=== PATIENT | female | born 1975 | race Caucasian/White ===

== ENCOUNTER → 2020-01-09 11:10 | Outpatient (BNVA) | payer MEDICAID, SELFPAY | PROVIDERS: PCP Internal Medicine; Referring Provider Internal Medicine; Visit Provider Internal Medicine | DX: E89.1 Postprocedural hypoinsulinemia (principal); E55.9 Vitamin D deficiency, unspecified; E66.3 Overweight; Z79.899 Other long term (current) drug therapy; Z98.84 Bariatric surgery status | CPT/HCPCS: 99214 ==

== ENCOUNTER 2020-03-01 15:50 | Outpatient (REF) | payer MEDICAID, SELFPAY ==
--- NOTE | 2020-03-01 15:59 | XR_ITS ---
EXAMINATION: XR KNEE, RIGHT CLINICAL INFORMATION: Pain COMPARISON: None TECHNIQUE: Four views of the right knee. FINDINGS: Bones and soft tissues are normal. No fracture or joint effusion. Alignment is anatomic. Joint spaces are well maintained. No abnormal soft tissue calcification. XR/XR knee RT 4V IMPRESSION: Normal right knee.
== END 2020-03-01 15:51 | disposition home or self-care (01) ==
LOC: HO.XRAY 15:50
PROVIDERS: PCP Internal Medicine; Visit Provider Internal Medicine
DX: M25.561 Pain in right knee (principal)
CPT/HCPCS: 73564

== ENCOUNTER → 2020-03-28 09:06 | Outpatient (BNVA) | payer MEDICAID, SELFPAY | PROVIDERS: PCP Internal Medicine; Visit Provider Dietitian, Registered | DX: Z76.89 Persons encountering health services in other specified circumstances (principal) ==

== ENCOUNTER 2020-04-02 16:50 | Outpatient (REF) | payer MEDICAID, SELFPAY | END 2020-04-02 16:51 | disposition home or self-care (01) | LOC: HO.LAB 16:50 | PROVIDERS: Visit Provider Internal Medicine | DX: Z20.822 Contact with and (suspected) exposure to COVID-19 (principal) | CPT/HCPCS: 36415; C9803; U0003 ==

== ENCOUNTER 2020-04-06 14:46 | Emergency (ER) | payer MEDICAID, SELFPAY ==
[2020-04-06 16:45] VITALS: BP 153/83; PULSE 60; RESP 18; TEMP 36.8; O2SAT 99; BMI 29.2
[2020-04-06] MEDS: Lidocaine HCl Viscous 2 % 15 ML SOLUTION MUCOUS MEM (19:06)
[2020-04-06] MEDS: Magnesium Hydrox/Alum Hydrox 30 ML ORAL.SUSP PO (19:06)
[2020-04-06 19:09] LABS: MANUAL DIFF FLAG NO
--- NOTE | 2020-04-06 19:09 | PC.NURSE ---
Report taken from miranda Berg RN resuming care. Pt medicated per MAR with GI cocktail, refusing IV, states I don't really need it and I want to leave before I expose myself to much. aware.
--- NOTE | 2020-04-06 19:13 | ED_ITS ---
HPI - Nausea/Vomiting/Diarrhea General Chief complaint: Dizziness Stated complaint: vomiting and weak Time Seen by Provider: 04/06/20 18:11 Source: patient Mode of arrival: ambulatory Limitations: no limitations History of Present Illness HPI Narrative: Patient comes emergency room complaining of vomiting starting t scot. Patient denies fever, no chills, no diarrhea, complaining of mild epigastric burning sensation. MD elicited complaint: nausea and vomiting Related Data Home Medications Medication Instructions Recorded Confirmed bupropion HCl 300 mg 24 hr tablet, 300 mg PO QAM 01/09/20 01/09/20 extended release calcium carbonate 500 mg calcium 1,000 mg PO DAILY 01/09/20 01/09/20 (1,250 mg) tablet cholecalciferol (vitamin D3) 125 125 mcg PO DAILY 01/09/20 01/09/20 mcg (5,000 unit) capsule hydroxyzine HCl 50 mg tablet 50 mg PO QID PRN 01/09/20 01/09/20 levonorgestrel 20 mcg/24 hours (6 INTRAUTERINE 01/09/20 01/09/20 yrs) 52 mg intrauterine device sertraline 100 mg tablet 100 mg PO DAILY 01/09/20 01/09/20 tramadol 50 mg tablet 50 mg PO BID PRN 01/09/20 01/09/20 Previous Rx's Medication Instructions Recorded acarbose 25 mg tablet 25 mg PO .COMPLEX 30 Days #120 tab 01/09/20 ondansetron HCl [Zofran] 4 mg PO Q8H PRN #10 tab 04/06/20 Allergies Allergy/AdvReac Type Severity Reaction Status Date / Time No Known Allergies Allergy Unknown Unverified 01/09/20 10:43 [No Known Allergies*] Review of Systems Review of Systems: Constitutional : No Weight loss, No Fever, No Chills, No Night Sweats, No Fatigue, No Malaise ENT/Mouth : No Hearing loss, No Ear Pain, No Nasal Congestion, No Sinus Pain, No Hoarseness, No sore throat, No Rhinorrhea, No Swallowing Difficulty Eyes: No Eye Pain, No Swelling, No Redness, No Foreign Body, No Discharge, No Vision Changes Cardiovascular : No Chest Pain, No SOB, No Dyspnea on Exertion, No Orthopnea, No Edema, No Palpitations Respiratory : No Cough, No Sputum, No Wheezing, No Smoke Exposure, No Dyspnea Gastrointestinal : Draining of nausea vomiting, no Diarrhea, No Constipation, complaining of epigastric burning, No Hematochezia, No Melena Genitourinary : no irregular bleeding, No Dysuria, No Urinary Frequency, No Hematuria, No Urinary Incontinence, No Urgency, No Flank Pain, No Urinary Flow Changes, No Hesitancy Musculoskeletal : No joint pain, No Myalgias, No Joint Swelling Skin : No Skin Lesions, No rash Neuro : No Weakness, No Numbness, No Paresthesias, No Loss of Consciousness, No Dizziness, No Headache Psych : No Anxiety/Panic, No Depression, No SI/HI/AH/VH, No Social Issues, Heme/Lymph: No Bruising, No Bleeding,No Lymphadenopathy Endocrine : No Polyuria, No Polydipsia, No Temperature Intolerance PMFSH Past Medical History Medical History Anxiety Asthma Depression Hypoglycemia after GI (gastrointestinal) surgery Overweight Sleep apnea Vitamin D deficiency Surgical History History of sleeve gastrectomy History of uterine fibroid Hx laparoscopic cholecystectomy Hx of section Hx of tubal ligation Family History Family History Father Brain tumor Mother HTN (hypertension) Depression with anxiety Obesity Social History Social History Smoking Status: Never smoker Advance Directives: No Advance Directives Information Provided: Yes Physical Exam Vital Signs: Vital Signs: Last Vital Signs Temp 98.3 F 04/06/20 19:58 Pulse 62 04/06/20 19:58 Resp 18 04/06/20 19:58 BP 118/75 04/06/20 19:58 Pulse Ox 96 04/06/20 19:58 Body Mass Index 29.2 Appearance: Alert. Oriented X3. No acute distress. Well-appearing, playing on her phone Eyes: Pupils equal, round and reactive to light. ENT: Pharynx normal. Neck: Normal inspection. Neck supple. No lymph nodes noted. No crepitus CVS: Normal heart rate and rhythm. Pulses normal. Normal S1 and S2 Respiratory: No respiratory distress. Breath sounds normal. No Wheezing. No rales Abdomen: Soft and nontender. No rigidity. No distention. good BS x4 Skin: Skin warm and dry. Normal skin color. Normal skin turgor. Extremities: No lower extremity edema. No lower extremity edema. No Lacerations. No Rash Neuro: Oriented X 3. No motor deficit. No sensory deficit. Moving all extermities. No slurred speech. Course Course Course Narrative: Patient declined IV insertion, declined fluids and IV medi cation. Patient states she only wants to know the results of her labs and wants to leave to avoid getting exposed to COVID-19. Patient only accepting p.o. medication I discussed the labs result with the patient, I also discussed with the patient that after the results come back, we call bariatric surgery to let them know about their patients who come in to the emergency room, and to schedule a follow-up appointment. Patient states that she does not want to wait, she is in a hurry and would like to be discharged. Patient states that she will call Dr. Jackson office on Thursday. Patient states that she feels much better, no longer vomiting or nauseous, no abdominal pain. MDM - Nausea/Vomiting/Diarrhea Lab Data Result diagrams: 04/06/20 19:02 04/06/20 19:02 Labs: Lab Results 04/06/20 04/06/20 Range/Units 19:02 19:02 WBC 5.3 (4.8-10.8) X10*3/uL RBC 4.10 L (4.20-5.50) X10*6/uL Hgb 12.4 (12.0-16.0) g/dl Hct 35.9 L (37-47) % MCV 87.6 (80-98) fL MCH 30.2 (27.0-33.0) pg MCHC 34.5 (31.0-35.0) g/dl RDW 12.6 (11.0-16.0) % Plt Count 238 (160-400) X10*3/uL MPV 11.2 (9.4-12.3) fL Immature Gran % (Auto) 0.2 (0.0-0.4) % Neut % (Auto) 45.6 (45-73) % Lymph % (Auto) 42.8 H (20-40) % [place] % (Auto) 6.8 (2-11) % Eos % (Auto) 4.2 H (0-4) % Baso % (Auto) 0.4 (0-2) % Lymph # (Auto) 2.3 (1.2-4.9) X10*3/uL [place] # (Auto) 0.4 (0.1-1.2) X10*3/uL Eos # (Auto) 0.2 (0.0-0.4) X10*3/uL Baso # (Auto) 0.0 (0.0-0.2) X10*3/uL Abs Immat Gran (auto) 0.01 (0.00-0.03) X10*3/uL Absolute Neuts (auto) 2.4 (2.0-8.3) X10*3/uL Absolute Nucleated RBC 0.000 (0.0-0.012) X10*3/uL Nucleated RBC % (auto) 0.0 (0.0-0.2) /100WBC Sodium 140 (135-145) mmol/L Potassium 3.8 (3.3-5.1) mmol/l Chloride 110 H (96-108) mmol/L Carbon Dioxide 24 (22-29) mmol/L Anion Gap 10 L (12-20) BUN 16 (9-16) mg/dL Creatinine 0.71 (0.5-1.4) mg/dL Estim Creat Clear Calc 95.3 Estimated GFR > 60 Random Glucose 82 (60-115) mg/dL Calcium 8.4 (8.4-10.2) mg/dL Total Bilirubin 0.5 (0.0-1.0) mg/dL Direct Bilirubin 0.2 (0.0-0.5) mg/dL AST 20 (5-31) U/L ALT 16 (0-31) U/L Alkaline Phosphatase 88 (39-117) U/L Total Protein 6.4 L (6.5-8.0) g/dL Albumin 3.8 (3.5-5.0) g/dL Lipase 16 (8-78) U/L Discharge Plan Discharge Clinical Impression: Abdominal pain Qualifiers: Abdominal location: epigastric Qualified Code(s): R10.13 - Epigastric pain Vomiting Qualifiers: Vomiting type: unspecified Vomiting Intractability: unspecified Nausea presence: unspecified Qualified Code(s): R11.10 - Vomiting, unspecified Patient Disposition: Home, Self-Care Instructions: Acute Nausea and Vomiting (ED) Additional Instructions: Please call the Bariatric surgery office on Thursday. Please follow-up with your primary care physician tomorrow. If you have any worsening or new symptoms, please return to the emergency room or call 911 Prescriptions: New ondansetron HCl [Zofran] 4 mg tablet 4 mg PO Q8H PRN (Reason: nausea and vomiting) Qty: 10 RF: 0 No Action tramadol 50 mg tablet 50 mg PO BID PRNRF: 0 bupropion HCl 300 mg tablet extended release 24 hr 300 mg PO QAM RF: 0 sertraline 100 mg tablet 100 mg PO DAILY RF: 0 hydroxyzine HCl 50 mg tablet 50 mg PO QID PRNRF: 0 Mirena 20 mcg/24 hours (5 yrs) 52 mg intrauterine device intrauterine RF: 0 calcium carbonate 500 mg calcium (1,250 mg) tablet 1,000 mg PO DAILY RF: 0 cholecalciferol (vitamin D3) 125 mcg (5,000 unit) capsule 125 mcg PO DAILY RF: 0 acarbose 25 mg tablet 25 mg PO .COMPLEX 30 Days Qty: 120 RF: 11
--- NOTE | 2020-04-06 19:17 | PC.NURSE ---
Pt medicated with PO Zofran, agreeable to waiting until labs result for discharge.
[2020-04-06 19:20] LABS: Basophils Percent Auto 0.4 % (0-2); Eosinophils Absolute Auto 0.2 X10*3/uL (0.0-0.4); Eosinophils Percent Auto 4.2 % (0-4); Hematocrit 35.9 % (37-47); Hemoglobin 12.4 g/dl (12.0-16.0); Imm Gran Abs Auto 0.01 X10*3/uL (0.00-0.03); Imm Gran Pct Auto 0.2 % (0.0-0.4); Lymphocytes Absolute Auto 2.3 X10*3/uL (1.2-4.9); Lymphocytes Percent Auto 42.8 % (20-40); Mean Corpuscular HGB Conc 34.5 g/dl (31.0-35.0); Mean Corpuscular Hemoglobin 30.2 pg (27.0-33.0); Mean Corpuscular Volume 87.6 fL (80-98); Mean Platelet Volume 11.2 fL (9.4-12.3); Monocytes Absolute Auto 0.4 X10*3/uL (0.1-1.2); Monocytes Percent Auto 6.8 % (2-11); Neutrophils Absolute Auto 2.4 X10*3/uL (2.0-8.3); Neutrophils Percent Auto 45.6 % (45-73); Platelet Count 238 X10*3/uL (160-400); Red Cell Distribution Width 12.6 % (11.0-16.0); White Blood Count 5.3 X10*3/uL (4.8-10.8)
[2020-04-06 19:35] LABS: Alanine Aminotransferase 16 U/L (0-31); Albumin Level 3.8 g/dL (3.5-5.0); Alkaline Phosphatase 88 U/L (39-117); Anion Gap 10 (12-20); Aspartate Amino Transferase 20 U/L (5-31); Bilirubin Direct 0.2 mg/dL (0.0-0.5); Bilirubin Total 0.5 mg/dL (0.0-1.0); Blood Urea Nitrogen 16 mg/dL (9-16); Calcium 8.4 mg/dL (8.4-10.2); Carbon Dioxide 24 mmol/L (22-29); Chloride 110 mmol/L (96-108); Creatinine Clr Calc Pharmacy 95.3; Estimated Glomerular Filt Rate > 60; Glucose Random 82 mg/dL (60-115); Lipase 16 U/L (8-78); Potassium 3.8 mmol/l (3.3-5.1); Sodium 140 mmol/L (135-145); Total Protein 6.4 g/dL (6.5-8.0)
[2020-04-06 19:58] VITALS: BP 118/75; PULSE 62; RESP 18; TEMP 36.8; O2SAT 96
--- NOTE | 2020-04-06 20:32 | PC.NURSE ---
Pt ambulating to the bathroom with a machado/steady gait. Denies pain/dizziness, requesting discharge. aware.
--- NOTE | 2020-04-06 21:00 | PC.NURSE ---
MD at bedside discussing results and plan to discharge home.
== END 2020-04-06 21:13 | disposition home or self-care (01) ==
PROVIDERS: Emergency Provider Emergency Medicine; PCP Internal Medicine
DX: R10.13 Epigastric pain (principal); R11.2 Nausea with vomiting, unspecified; Z98.84 Bariatric surgery status
CPT/HCPCS: 36415; 80048; 80076; 83690; 85025; 96360; 96361; 96374; 99283; 99284; J2405

== ENCOUNTER 2020-04-21 08:08 | Outpatient (REF) | payer MEDICAID, SELFPAY | END 2020-04-21 08:09 | disposition home or self-care (01) | LOC: HO.LAB 08:08 | PROVIDERS: PCP Internal Medicine; Visit Provider Internal Medicine | DX: Z20.822 Contact with and (suspected) exposure to COVID-19 (principal) | CPT/HCPCS: 36415; C9803; U0003 ==

== ENCOUNTER 2020-04-24 11:14 | Outpatient (REF) | payer MEDICAID, SELFPAY | END 2020-04-24 11:15 | disposition home or self-care (01) | LOC: HO.LAB 11:14 | PROVIDERS: PCP Internal Medicine; Visit Provider Internal Medicine | DX: Z20.822 Contact with and (suspected) exposure to COVID-19 (principal) | CPT/HCPCS: 36415; C9803; U0003; U0005 ==

== ENCOUNTER → 2020-04-27 08:28 | Outpatient (BNVA) | payer MEDICAID, SELFPAY | PROVIDERS: PCP Internal Medicine; Visit Provider Dietitian, Registered ==

== ENCOUNTER 2020-05-02 09:25 | Outpatient (REF) | payer MEDICAID, SELFPAY | END 2020-05-02 09:26 | disposition home or self-care (01) | LOC: HO.LAB 09:25 | PROVIDERS: Visit Provider Internal Medicine | DX: Z20.822 Contact with and (suspected) exposure to COVID-19 (principal) | CPT/HCPCS: 36415; C9803; U0003; U0005 ==

== ENCOUNTER → 2020-05-03 08:21 | Outpatient (BNVA) | payer MEDICAID, SELFPAY | PROVIDERS: PCP Internal Medicine; Visit Provider Physician Assistant ==

== ENCOUNTER → 2020-06-08 08:17 | Outpatient (BNVA) | payer MEDICAID, SELFPAY | PROVIDERS: PCP Internal Medicine; Visit Provider Physician Assistant ==

== ENCOUNTER 2020-06-08 19:36 | Emergency (ER) | payer MEDICAID, SELFPAY ==
[2020-06-08 20:16] VITALS: BP 136/87; PULSE 78; RESP 17; TEMP 36.7; O2SAT 97
[2020-06-08 20:33] VITALS: BP 136/87; PULSE 78; RESP 17; TEMP 36.7; O2SAT 97; BMI 28.5
--- NOTE | 2020-06-08 21:02 | PC.NURSE ---
care team called and made aware pt is in the pod and will be seen. pt is calm cooperative, labs and urine being collected.
[2020-06-08 21:29] LABS: MANUAL DIFF FLAG NO
[2020-06-08 21:30] LABS: Basophils Percent Auto 0.3 % (0-2); Eosinophils Absolute Auto 0.2 X10*3/uL (0.0-0.4); Eosinophils Percent Auto 2.3 % (0-4); Hematocrit 37.5 % (37-47); Hemoglobin 12.8 g/dl (12.0-16.0); Imm Gran Abs Auto 0.02 X10*3/uL (0.00-0.03); Imm Gran Pct Auto 0.3 % (0.0-0.4); Lymphocytes Percent Auto 26.7 % (20-40); Mean Corpuscular HGB Conc 34.1 g/dl (31.0-35.0); Mean Corpuscular Hemoglobin 29.6 pg (27.0-33.0); Mean Corpuscular Volume 86.8 fL (80-98); Mean Platelet Volume 10.7 fL (9.4-12.3); Monocytes Absolute Auto 0.5 X10*3/uL (0.1-1.2); Monocytes Percent Auto 7.2 % (2-11); Neutrophils Absolute Auto 4.8 X10*3/uL (2.0-8.3); Neutrophils Percent Auto 63.2 % (45-73); Platelet Count 275 X10*3/uL (160-400); Red Blood Count 4.32 X10*6/uL (4.20-5.50); Red Cell Distribution Width 12.4 % (11.0-16.0); White Blood Count 7.5 X10*3/uL (4.8-10.8)
[2020-06-08 21:33] LABS: UPreg QC Valid YES; Urine Pregnancy NEGATIVE (NEGATIVE)
--- NOTE | 2020-06-08 21:47 | MHC.CARE ---
Pt presented to [facility] [place] secondary to experiencing her first panic attack. Pt reports she has been overwhelmed and stressed and identifies with challenges in her marriage and her 19 year old depending on her. Pt reports her and her got into an verbal disagreement, she went to her cry to take some space and realized she was experiencing a panic attack. Her son came to the car, very concerned because she was unable to speak and drove her to the hospital. Pt reported her current therapist has been her therapist for over 10 years and speaks with him weekly. Her current medications are prescribed by her primary care physician. Pt reports she experiences vague SI such as I would be better off however denies any plan or intent. 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 Pt is advised to follow up with her therapist and request her therapist to refer her to a psychiatrist. Pt was receptive to this and reports she wants to discharge home. Pt will be discharged home with a prescription of Hydroxyzine to assist with her anxiety as needed.
[2020-06-08 22:36] LABS: Amphetamine Screen Urine Not Detected (Not Detect); Barbiturates, Urine Not Detected (Not Detect); Benzodiazepines Screen Urine Not Detected (Not Detect); Cannabinoid Screen Urine Not Detected (Not Detect); Cocaine Screen Urine Not Detected (Not Detect); Ethanol < 10 mg/dL; Opiate Screen Urine Not Detected (Not Detect); Phencyclidine Screen Urine Not Detected (Not Detect)
--- NOTE | 2020-06-08 22:42 | ED.PSYCH ---
HPI - Psych General Chief Complaint: Psychiatric Symptoms Stated Complaint: Crisis Time Seen by Provider: 06/08/20 22:41 Source: EMS Mode of arrival: EMS Limitations: no limitations History of Present Illness HPI Narrative: Pleasant 45-year-old female with history of depression, anxiety, as asthma and other history as noted below presenting via EMS from home with complaint recent stressors and increase in anxiety with vague thoughts of SI for the past month. She reports that about 1 week ago her was found at the front door stab and since she has felt more stressed and anxious. She states she also suffers from depression and anxiety feels it is worse secondary to this. She otherwise denies any illicit drug use. No current medical problems. MD complaint: suicidal ideation, feels depressed and anxiety Onset (ago): day(s) Duration: intermittent History of same: Yes Relieving factors: none Exacerbating factors: medication Associated psychiatric symptoms: none Associated symptoms: denies other symptoms Related Data Home Medications Medication Instructions Recorded Confirmed bupropion HCl 300 mg 24 hr tablet, 300 mg PO QAM 01/09/20 01/09/20 extended release calcium carbonate 500 mg calcium 1,000 mg PO DAILY 01/09/20 01/09/20 (1,250 mg) tablet cholecalciferol (vitamin D3) 125 125 mcg PO DAILY 01/09/20 01/09/20 mcg (5,000 unit) capsule hydroxyzine HCl 50 mg tablet 50 mg PO QID PRN 01/09/20 01/09/20 levonorgestrel 20 mcg/24 hours (6 INTRAUTERINE 01/09/20 01/09/20 yrs) 52 mg intrauterine device sertraline 100 mg tablet 100 mg PO DAILY 01/09/20 01/09/20 tramadol 50 mg tablet 50 mg PO BID PRN 01/09/20 01/09/20 multivitamin with minerals-folic tab PO 05/03/20 05/03/20 acid 200 mcg chewable tablet Previous Rx's Medication Instructions Recorded acarbose 25 mg tablet 25 mg PO .COMPLEX 30 Days #120 tab 01/09/20 ondansetron HCl [Zofran] 4 mg PO Q8H PRN #10 tab 04/06/20 omeprazole 20 mg capsule,delayed 20 mg PO DAILY #30 cap 05/03/20 release hydroxyzine HCl 25 mg PO BID PRN #14 tab 06/08/20 Allergies Allergy/AdvReac Type Severity Reaction Status Date / Time No Known Allergies Allergy Unknown Unverified 01/09/20 10:43 [No Known Allergies*] Review of Systems Review of Systems: Constitutional: No Weight loss, No Fever, No Chills, No Night Sweats, No Fatigue, No Malaise ENT/Mouth: No Hearing loss, No Ear Pain, No Nasal Congestion, No Sinus Pain, No Hoarseness, No sore throat, No Rhinorrhea, No Swallowing Difficulty Eyes: No Eye Pain, No Swelling, No Redness, No Foreign Body, No Discharge, No Vision Changes Cardiovascular: No Chest Pain, No SOB, No Dyspnea on Exertion, No Orthopnea, No Edema, No Palpitations Respiratory: No Cough, No Sputum, No Wheezing, No Smoke Exposure, No Dyspnea Gastrointestinal: No Nausea, No Vomiting, No Diarrhea, No Constipation, No abdominal Pain, No Hematochezia, No Melena Genitourinary: No Dysuria, No Urinary Frequency, No Hematuria, No Urinary Incontinence, No Urgency, No Flank Pain, No Urinary Flow Changes, No Hesitancy Musculoskeletal: No joint pain, No Myalgias, No Joint Swelling Skin: No Skin Lesions, No rash Neuro: No Weakness, No Numbness, No Paresthesias, No Loss of Consciousness, No Dizziness, No Headache Psych: As noted per HPI Heme/Lymph: No Bruising, No Bleeding,No Lymphadenopathy Endocrine: No Polyuria, No Polydipsia, No Temperature Intolerance Yes all other systems are reviewed and are negative PMFSH Past Medical History Medical History (Updated 06/09/20 @ 00:01 by Shane Gallegos) Anxiety Asthma Depression Hypoglycemia after GI (gastrointestinal) surgery Overweight Sleep apnea Vitamin D deficiency Surgical History (Updated 06/08/20 @ 16:20 by Lis Cerna PA-C) History of sleeve gastrectomy History of uterine fibroid Hx laparoscopic cholecystectomy Hx of section Hx of tubal ligation Family History Family History Father Brain tumor Mother HTN (hypertension) Depression with anxiety Obesity Social History Social History Smoking Status: Never smoker Advance Directives: No Physical Exam Vital Signs: Vital Signs: Last Vital Signs Temp 98.0 F 06/08/20 20:33 Pulse 78 06/08/20 20:33 Resp 17 06/08/20 20:33 BP 136/87 06/08/20 20:33 Pulse Ox 97 06/08/20 20:33 Body Mass Index 28.5 Reviewed Const: General: cooperative, healthy appearing and anxious; No intoxicated appearing Nutritional Appearance: average body habitus Orientation/consciousness: patient oriented x3 HENMT: Head: Yes normal to inspection Ears: hearing grossly normal bilaterally Eyes: General: appearance normal, both eyes and all related structures Visual Conn: normal visual conn by confrontation Neck: Neck: Yes normal visual inspection, No positive Brudzinski's sign, No positive Kernig's sign and No tender Thyroid: Thyroid normal Chest: Chest palpation & inspection: normal inspection of the chest Resp: Effort & Inspection: normal respiratory effort Auscultation: clear to auscultation bilaterally Cardio: Jugular venous distension: no JVD Rhythm: regular rhythm Heart sounds: S1 normal heart sound present and S2 normal heart sound present GI: Inspection: Yes normal to inspection Palpation (GI): Soft to palpation Percussion: Yes normal to percussion Auscultation: normal bowel sounds : General: Yes no CVA tenderness Back/Spine/Pelvis: Back: no CVA tenderness Skin: General skin exam: no rashes or lesions noted Neuro: General: patient oriented x3 Extrem: General: Yes normal to inspection Psych: Mental Status: mental status grossly normal Speech and movement: Clear speech present Affect: Anxious affect present Attitude: cooperative Thought process: Normal thought process present Thought content: Normal thought content present Insight: Good insight present (Psych) Judgement: Good judgement present (Psych) Course Course Course Narrative: Medical screening labs and care team evaluation. Plan reviewed and agreeable. Otherwise vital stable in no acute distress. Plan reviewed and agreed with. Consultations Consultation #1: Evaluate by the care team clear for discharge. Vague SI only at times of anxiety but no plan she is future oriented she was on hydroxyzine in the past would like something for anxiety will give her short course of this with plan for close follow-up with outpatient providers. Patient with contracts for safety no SI or HI. Stable for discharge. MDM - Psych Lab Data Result diagrams: 06/08/20 21:20 Labs: Lab Results 06/08/20 06/08/20 06/08/20 Range/Units 21:20 21:20 21:20 WBC 7.5 (4.8-10.8) X10*3/uL RBC 4.32 (4.20-5.50) X10*6/uL Hgb 12.8 (12.0-16.0) g/dl Hct 37.5 (37-47) % MCV 86.8 (80-98) fL MCH 29.6 (27.0-33.0) pg MCHC 34.1 (31.0-35.0) g/dl RDW 12.4 (11.0-16.0) % Plt Count 275 (160-400) X10*3/uL MPV 10.7 (9.4-12.3) fL Immature Gran % (Auto) 0.3 (0.0-0.4) % Neut % (Auto) 63.2 (45-73) % Lymph % (Auto) 26.7 (20-40) % [place] % (Auto) 7.2 (2-11) % Eos % (Auto) 2.3 (0-4) % Baso % (Auto) 0.3 (0-2) % Lymph # (Auto) 2.0 (1.2-4.9) X10*3/uL [place] # (Auto) 0.5 (0.1-1.2) X10*3/uL Eos # (Auto) 0.2 (0.0-0.4) X10*3/uL Baso # (Auto) 0.0 (0.0-0.2) X10*3/uL Abs Immat Gran (auto) 0.02 (0.00-0.03) X10*3/uL Absolute Neuts (auto) 4.8 (2.0-8.3) X10*3/uL Absolute Nucleated RBC 0.000 (0.0-0.012) X10*3/uL Nucleated RBC % (auto) 0.0 (0.0-0.2) /100WBC Urine Test (NEGATIVE) Urine Opiates Screen Not Detected (Not Detect) Ur Barbiturates Screen Not Detected (Not Detect) Ur Phencyclidine Scrn Not Detected (Not Detect) Ur Amphetamines Screen Not Detected (Not Detect) U Benzodiazepines Scrn Not Detected (Not Detect) Urine Cocaine Screen Not Detected (Not Detect) U Marijuana (THC) Screen Not Detected (Not Detect) Ethyl Alcohol < 10 mg/dL 06/08/20 Range/Units 21:20 WBC (4.8-10.8) X10*3/uL RBC (4.20-5.50) X10*6/uL Hgb (12.0-16.0) g/dl Hct (37-47) % MCV (80-98) fL MCH (27.0-33.0) pg MCHC (31.0-35.0) g/dl RDW (11.0-16.0) % Plt Count (160-400) X10*3/uL MPV (9.4-12.3) fL Immature Gran % (Auto) (0.0-0.4) % Neut % (Auto) (45-73) % Lymph % (Auto) (20-40) % [place] % (Auto) (2-11) % Eos % (Auto) (0-4) % Baso % (Auto) (0-2) % Lymph # (Auto) (1.2-4.9) X10*3/uL [place] # (Auto) (0.1-1.2) X10*3/uL Eos # (Auto) (0.0-0.4) X10*3/uL Baso # (Auto) (0.0-0.2) X10*3/uL Abs Immat Gran (auto) (0.00-0.03) X10*3/uL Absolute Neuts (auto) (2.0-8.3) X10*3/uL Absolute Nucleated RBC (0.0-0.012) X10*3/uL Nucleated RBC % (auto) (0.0-0.2) /100WBC Urine Test NEGATIVE (NEGATIVE) Urine Opiates Screen (Not Detect) Ur Barbiturates Screen (Not Detect) Ur Phencyclidine Scrn (Not Detect) Ur Amphetamines Screen (Not Detect) U Benzodiazepines Scrn (Not Detect) Urine Cocaine Screen (Not Detect) U Marijuana (THC) Screen (Not Detect) Ethyl Alcohol mg/dL Discharge Plan Discharge Clinical Impression: Anxiety Patient Disposition: Home, Self-Care Instructions: Anxiety (ED) Additional Instructions: Follow-up with her primary care/psychiatry team Return if any concerns or worsening symptoms Home care instructions reviewed Thank you Prescriptions: New hydroxyzine HCl 25 mg tablet 25 mg PO BID PRN (Reason: anxiety) Qty: 14 RF: 0 No Action ondansetron HCl [Zofran] 4 mg tablet 4 mg PO Q8H PRN (Reason: nausea and vomiting) Qty: 10 RF: 0 tramadol 50 mg tablet 50 mg PO BID PRNRF: 0 bupropion HCl 300 mg tablet extended release 24 hr 300 mg PO QAM RF: 0 sertraline 100 mg tablet 100 mg PO DAILY RF: 0 hydroxyzine HCl 50 mg tablet 50 mg PO QID PRNRF: 0 Mirena 20 mcg/24 hours (5 yrs) 52 mg intrauterine device intrauterine RF: 0 calcium carbonate 500 mg calcium (1,250 mg) tablet 1,000 mg PO DAILY RF: 0 cholecalciferol (vitamin D3) 125 mcg (5,000 unit) capsule 125 mcg PO DAILY RF: 0 acarbose 25 mg tablet 25 mg PO .COMPLEX 30 Days Qty: 120 RF: 11 Adult Multivitamin Gummies 200 mcg tablet,chewable PO RF: 0 omeprazole 20 mg capsule,delayed release(DR/EC) 20 mg PO DAILY Qty: 30 RF: 1 Interventions: ED Discharge Assessment Last Done: 06/08/20 23:07 Discharge Date/Time: 06/08/20 23:11
== END 2020-06-08 23:11 | disposition home or self-care (01) ==
PROVIDERS: Emergency Provider Internal Medicine; PCP Internal Medicine
DX: F41.9 Anxiety disorder, unspecified (principal); R45.851 Suicidal ideations
CPT/HCPCS: 80307; 80320; 81025; 85025; 99283; 99284

== ENCOUNTER 2020-07-03 07:48 | Outpatient (REF) | payer MEDICAID, SELFPAY ==
[2020-07-03 08:34] LABS: COVID-19 Test Negative (Negative)
== END 2020-07-03 07:49 | disposition home or self-care (01) ==
LOC: HO.LAB 07:48
PROVIDERS: Visit Provider Internal Medicine
DX: Z20.822 Contact with and (suspected) exposure to COVID-19 (principal)
CPT/HCPCS: 36415; 87635; C9803

== ENCOUNTER 2024-07-31 17:54 | Emergency (ER) | payer OTHER, SELFPAY ==
--- NOTE | ~2024-07-31 | XR_ITS ---
CLINICAL HISTORY: pain, injury, concerned for retained Fb 3 view left foot Comparison: None Findings: Displaced fracture of the left 1st metatarsal extending into the1st metatarsophalangeal joint. No foreign body. IMPRESSION: 1. Displaced 1st metatarsal fracture extending into the 1st metatarsophalangeal joint. No foreign body. This document has been electronically signed by: Kenyon Guillory MD on 07/31/2024 19:24:37
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
[2024-07-31 17:59] VITALS: BP 158/99; PULSE 99; RESP 19; TEMP 36.6; O2SAT 99; BMI 29.6
[2024-07-31] MEDS: Acetaminophen 325 MG TABLET 975 MG PO (20:06)
[2024-07-31 22:21] VITALS: BP 119/78; PULSE 84; RESP 20; TEMP 36.8; O2SAT 100
[2024-07-31] MEDS: Ibuprofen 400 MG TABLET PO (22:35)
[2024-07-31] MEDS: oxyCODONE HCl Immed Release 5 MG TABLET 10 MG PO (22:35)
[2024-07-31] MEDS: Lidocaine HCl 1 % MPF 5 ML VIAL INFILTRATI (22:36)
[2024-07-31] MEDS: Diphth,Pertus(ACell),Tet Adult 0.5 ML SYRINGE IM (23:01)
[2024-07-31] MEDS: ceFAZolin Sodium/Dextrose,Iso 2 GM/50 ML PIGGYBACK IV (23:21)
[2024-07-31] MEDS: Morphine Sulfate 4 MG/ML CARTRIDGE IVPUSH (23:56)
--- NOTE | 2024-07-31 23:57 | MHC.EDTECH ---
late entry: assumed care of pt @2100
[2024-08-01] MEDS: Morphine Sulfate 4 MG/ML CARTRIDGE IVPUSH (00:57)
--- NOTE | 2024-08-01 01:12 | PC.NURSE ---
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
[2024-08-01 01:31] VITALS: BP 119/78; PULSE 84; RESP 20; TEMP 36.8; O2SAT 100
== END 2024-08-01 01:32 | disposition short-term general hospital (02) ==
PROVIDERS: Emergency Provider Emergency Medicine Emergency Medical Services
DX: S92.312A Displaced fracture of first metatarsal bone, left foot, initial encounter for closed fracture (principal); S91.312A Laceration without foreign body, left foot, initial encounter; M79.672 Pain in left foot; X99.0XXA Assault by sharp glass, initial encounter; Y93.9 Activity, unspecified; Y92.9 Unspecified place or not applicable; Y99.8 Other external cause status; Z79.899 Other long term (current) drug therapy; Z23 Encounter for immunization; Z98.84 Bariatric surgery status
CPT/HCPCS: 11042; 73630; 90471; 90715; 96365; 96375; 96376; 99285; J0690; J2003; J2270

== ENCOUNTER → 2024-07-31 18:00 | Outpatient (BNV) | payer MEDICAID, SELFPAY | PROVIDERS: Visit Provider Radiology Diagnostic Radiology | DX: S92.312A Displaced fracture of first metatarsal bone, left foot, initial encounter for closed fracture (principal) | CPT/HCPCS: 73630 ==